=== PATIENT | male | born 1975 | race Caucasian/White ===

== ENCOUNTER 2024-01-29 16:10 | Inpatient (IN) ==
[2024-01-29 17:35] LABS: ABS Basophils 0.1 10^3/uL (0.0-0.1); ABS Lymphocytes 1.2 10^3/uL (1.0-4.8); ABS Monocytes 1.1 10^3/uL (0.0-1.1); ABS Neutrophils 7.4 10^3/uL (1.5-7.6); Eosinophil % 0.2 %; Hematocrit 43.8 % (38-53); Hemoglobin 14.7 g/dL (13.2-16.3); Lymphocyte % 12.3 %; Mean Corpuscular Hgb Conc 33.6 g/dL (31-36); Mean Corpuscular Volume 89.3 fL (80-97); Mean Platelet Volume 6.3 fL (7.5-11.2); Platelet Count 212 10^3/uL (150-450); Red Cell Distribution Width 13.5 % (12-17); White Blood Count 9.8 10^3/uL (3.6-10.2)
[2024-01-29 17:40] LABS: Urine Appearance Clear; Urine Bilirubin Negative (Negative); Urine Blood Negative (Negative); Urine Color Yellow; Urine Glucose 2+ (>=150 mg/dL) (Negative); Urine Ketones 2+ (Negative); Urine Nitrite Negative (Negative); Urine Protein Trace (Negative); Urine Specific Gravity 1.029 (1.002-1.030); Urine Urobilinogen Negative (Negative)
[2024-01-29 18:10] LABS: Urine Benzodiazepine Screen None Detected (None Detect); Urine Cannabinoids Screen None Detected (None Detect); Urine Opiates Screen None Detected (None Detect)
[2024-01-29 18:13] LABS: ALT 8 U/L (7-52); AST 15 U/L (13-39); Acetaminophen < 15 mcg/mL; Albumin 4.4 g/dL (3.2-5.2); Albumin/Globulin Ratio 1.8 (1-3); Alcohol, S < 13 mg/dL (<13); Alkaline Phosphatase 56 U/L (35-149); Anion Gap 9 mmol/L (2-16); Blood Urea Nitrogen 20 mg/dL (6-24); CO2 Carbon Dioxide 25 mmol/L (22-32); Calcium 9.5 mg/dL (8.6-10.3); Chloride 104 mmol/L (101-111); Creatine Kinase 365 U/L (10-223); Globulin 2.4 g/dL (2-4); Glucose 141 mg/dL (70-100); Potassium 3.8 mmol/L (3.5-5.0); Salicylate < 2.50 mg/dL (<30); Sodium 138 mmol/L (135-145); Total Bilirubin 0.9 mg/dL (0.2-1.0); Total Protein 6.8 g/dL (6.4-8.9); eGFR CKD-EPI 114.4 (>60)
[2024-01-29 18:28] LABS: TSH Ultra Thyroid Stim Horm 4.06 mcIU/mL (0.34-5.60)
[2024-01-29] MEDS ORDERED: Al Hydrox/Mg Hydrox/Simet LIQ 30 ML UDC PO PRN (22:28)
[2024-01-30] MEDS: Vitamin THERAPEUTIC TAB PO SCH (09:13)
[2024-02-01 10:17] VITALS: BP 120/77
[2024-02-01] MEDS ORDERED: risperiDONE ER SUBCUT (NF) 200 MG/0.56 ML SYRINGE SUBCUT ONE (11:00)
[2024-02-01] MEDS: risperiDONE ER SUBCUT (NF) 200 MG/0.56 ML SYRINGE SUBCUT ONE (14:42)
[2024-02-02 08:41] LABS: HDL Cholesterol 61.3 mg/dL
[2024-02-02] MEDS ORDERED: risperiDONE ER SUBCUT (NF) 200 MG/0.56 ML SYRINGE SUBCUT ONE (12:00)
== END 2024-02-02 12:16 | disposition home or self-care (01) | DRG 885 ==
LOC: ED 16:10 → EDHOLD 19:41 → BSU 19:55
PROVIDERS: ADMIT Psychiatry & Neurology Psychiatry; ATTEND Psychiatry & Neurology Psychiatry